=== PATIENT | male | born 1995 | race Caucasian/White ===

== ENCOUNTER 2018-09-05 10:35 | Emergency (ER) | payer SELFPAY ==
[2018-09-05 10:40] VITALS: BP 134/74
[2018-09-05] MEDS ORDERED: TETRACAINE HCL 0.5% OPH SOLN 4 ML OD ONE (10:48)
--- NOTE | 2018-09-05 10:48 | ER Document Report ---
ED General - General Chief Complaint: Eye Injury Stated Complaint: RIGHT EYE INJURY Time Seen by Provider: 09/05/18 10:43 Notes: Patient is a 23-year-old male that presents to the emergency department for chief complaint of right eye injury. Patient states that he was at work, when he shoebox fell and struck his right eye, this caused redness and pain so it he was told to come to the emergency department. He reports this occurred about 45 minutes ago, he has a throbbing ache in his eye, but does not describe it as pain. He reports he has had a tetanus shot in the last 5 years. He has some blurriness to his vision, but states he can see rather well. He does not wear contacts or glasses. Denies any other injuries, did not lose consciousness. Past Medical History: Denies chronic medical conditions Past Surgical History: Denies surgical history Social History: Denies current tobacco, alcohol or drug use Family History: Reviewed and noncontributory for presenting illness Allergies: Reviewed, see documented allergy list. REVIEW OF SYSTEMS: Unless otherwise stated in this report the patient's positive and negative responses for review of systems for constitutional, eyes, ENT, cardiovascular, respiratory, gastrointestinal, neurological, genitourinary, musculoskeletal, and integumentary systems and related systems to the presenting problem are either as stated in the HPI or were not pertinent or were negative for the symptoms and/or complaints related to the presenting medical problem. PHYSICAL EXAMINATION: Vital signs reviewed, nursing noted reviewed. GENERAL: Well-appearing, well-nourished and in no acute distress. HEAD: Atraumatic, normocephalic. EYES: Eyes appear normal, extraocular movements intact, sclera anicteric, right conjunctival injection, no preseptal edema, EOMI, PERRLA, no pain with extraocular eye movements, fluorescein dye exam using slit lamp, there is a linear horizontal corneal abrasion noted inferior to the right pupil. No Angie sign, no flare. ENT: nares patent, oropharynx clear without exudates. Moist mucous membranes. NECK: Normal range of motion, supple without lymphadenopathy LUNGS: Breath sounds clear to auscultation bilaterally and equal. No wheezes rales or rhonchi. HEART: Regular rate and rhythm without murmurs ABDOMEN: Soft, nontender, normoactive bowel sounds. No rebound, guarding, or rigidity. No masses appreciated. EXTREMITIES: Nontender, good range of motion, no pitting or edema. NEUROLOGICAL: No focal neurological deficits. Moves all extremities spontaneously Motor and sensory grossly intact on exam. PSYCH: Normal mood, normal affect. SKIN: Warm, Dry, normal turgor, no rashes or lesions noted on exposed skin TRAVEL OUTSIDE OF THE [place] IN LAST 30 DAYS: No - Related Data Allergies/Adverse Reactions: codeine [Codeine] Allergy (Verified 09/05/18 10:47) peanut Allergy (Verified 09/05/18 10:47) Past Medical History - Social History Smoking Status: Never Smoker Frequency of alcohol use: None Drug Abuse: None Family History: Reviewed & Not Pertinent Patient has suicidal ideation: No Patient has homicidal ideation: No Pulmonary Medical History: Reports: Hx Asthma Renal/ Medical History: Denies: Hx Peritoneal Dialysis Past Surgical History: Reports: Hx Tonsillectomy - Immunizations Immunizations up to date: Yes Hx Diphtheria, Pertussis, Tetanus Vaccination: No Physical Exam - Vital signs Vitals: Temp Pulse Resp BP Pulse Ox 98.7 F 80 16 134/74 H 98 09/05/18 10:39 09/05/18 10:39 09/05/18 10:39 09/05/18 10:39 09/05/18 10:39 Course - Re-evaluation Re-evalutation: Patient seen and examined vital signs reviewed. Patient was evaluated and treated as appropriate for the patient's presenting symptoms and complaint, with consideration of any critical or life threatening conditions that may be associated with their obtained history and exam as noted above. Patient was treated with tetracaine dye, given good relief of his throbbing sensation, under slit-lamp exam, the patient did have a superficial corneal abrasion inferior to the pupil of the right eye The patient was re-evaluated and was stable Evaluation was most consistent with corneal abrasion of the right eye, will treat with ciprofloxacin eyedrops, he is given a prescription, and follow-up with ophthalmology, patient was agreeable, is also given a work note. Plan of care was discussed with the patient at this point, after careful consideration I feel that that patient can be discharged from the emergency department, the patient was educated treatments and reasons to return to the emergency department based on their presumed diagnosis as noted above, they were advised to followup with a primary care physician in 2-3 days. Patient was agreeable to plan of care. *Note is created using voice recognition software and may contain spelling, syntax or grammatical errors. - Vital Signs Vital signs: Temp Pulse Resp BP Pulse Ox 98.7 F 80 16 134/74 H 98 09/05/18 10:39 09/05/18 10:39 09/05/18 10:39 09/05/18 10:39 09/05/18 10:39 Discharge - Discharge Clinical Impression: Corneal abrasion Qualifiers: Encounter type: initial encounter Laterality: right Qualified Code(s): S05.01XA - Injury of conjunctiva and corneal abrasion without foreign body, right eye, initial encounter Condition: Stable Disposition: HOME, SELF-CARE Instructions: Corneal Abrasion ([facility]) Additional Instructions: If you have worsening pain or vision loss do not hesitate to return to the emergency department, please use the antibiotic eyedrops, as directed, and follow-up with the white lead filterer. Prescriptions: Ciprofloxacin HCl 2.5 ml OD Q4H 5 Days #1 bottle Forms: Return to Work [facility] [NO [facility]AL MD] - Follow up as needed TIAN FALCON MD [ACTIVE STAFF] - Follow up tomorrow (call for appointment. )
== END 2018-09-05 11:03 | disposition home or self-care (01) ==
LOC: ER 10:35
DX: S05.01XA Injury of conjunctiva and corneal abrasion without foreign body, right eye, initial encounter (principal); W20.8XXA Other cause of strike by thrown, projected or falling object, initial encounter; Y99.0 Civilian activity done for income or pay; Z88.6 Allergy status to analgesic agent; Z91.010 Allergy to peanuts
CPT/HCPCS: 99283

== ENCOUNTER 2019-03-23 03:44 | Emergency (ER) | payer SELFPAY ==
[2019-03-23] MEDS ORDERED: LOPERAMIDE HCL 2 MG CAPSULE PO ONE (07:15)
[2019-03-23] MEDS ORDERED: ONDANSETRON 4 MG TAB.RAPDIS PO ONE (07:15)
--- NOTE | 2019-03-23 07:24 | ER Document Report ---
ED General - General Chief Complaint: Vomiting/Diarrhea Stated Complaint: VOMITING Time Seen by Provider: 03/23/19 07:15 Notes: Patient presents with vomiting diarrhea. Last night he got kind of a bellyache, and then woke up vomiting about 11 PM. He is vomited about 6 times since then but then began also having diarrhea. Diarrhea is watery and nonbloody. He denies abdominal pain constantly but has intermittent gurgling and cramping. No questionable food intake foreign travel antibiotics or see the history. No fever. TRAVEL OUTSIDE OF THE [place] IN LAST 30 DAYS: No - Related Data Allergies/Adverse Reactions: codeine [Codeine] Allergy (Verified 03/23/19 07:26) peanut Allergy (Verified 03/23/19 07:26) Past Medical History - General Information source: Patient - Social History Smoking Status: Never Smoker Family History: Reviewed & Not Pertinent Pulmonary Medical History: Reports: Hx Asthma Renal/ Medical History: Denies: Hx Peritoneal Dialysis Past Surgical History: Reports: Hx Tonsillectomy - Immunizations Immunizations up to date: Yes Hx Diphtheria, Pertussis, Tetanus Vaccination: No Review of Systems - Review of Systems Notes: REVIEW OF SYSTEMS GEN: Denies fever, chills, weight loss ENT: Denies sore throat, nasal discharge, ear pain EYES: Denies blurry vision, eye pain, discharge CV: Denies chest pain, palpitations, edema RESP: Denies cough, shortness of breath, wheezing GI: Abdominal pain vomiting diarrhea MSK: Denies joint pain/swelling, edema, SKIN: Denies rash, skin lesions LYMPH: Denies swollen glands/lymph nodes NEURO: Denies headache, focal weakness or numbness, dizziness PSYCH: Denies depression, suicidal or homicidal ideation PHYSICAL EXAMINATION General: No acute distress, well-nourished Head: Atraumatic, normocephalic ENT: Mouth normal, oropharynx moist, no exudates or tonsillar enlargement Eyes: Conjunctiva normal, pupils equal, lids normal Neck: No JVD, supple, no guarding CVS: Normal rate, regular rhythm, no murmurs Resp: No resp distress, equal and normal breath sounds bilaterally GI: Nondistended, soft, no tenderness to palpation, no rebound or guarding Ext: No deformities, no edema, normal range of motion in upper and lower ext Back: No CVA or midline TTP Skin: No rash, warm Lymphatic: No lymphadeopathy noted Neuro: Awake, alert. Face symmetric. GCS 15. Physical Exam - Vital signs Vitals: Temp Pulse Resp BP Pulse Ox 97.6 F 84 17 127/72 H 97 03/23/19 03:54 03/23/19 03:54 03/23/19 03:54 03/23/19 03:54 03/23/19 03:54 Course - Re-evaluation Re-evalutation: 03/23/19 07:22 Healthy young male with vomiting diarrhea no abdominal tenderness despite intermittent abdominal cramping, very likely acute gastroneuritis. Has not tried anything at home. Will do Zofran sublingual and p.o. Imodium to start and then attempt to orally hydrate. Doubt appendicitis or other acute abdominal emergency at this point. 03/23/19 13:35 Patient resting comfortably after medications and was tolerating p.o. with normal vital signs. He will be discharged home to follow-up with primary care. I have discussed with the patient there likely diagnosis, aftercare plan, follow-up plans and my usual and customary return precautions. They verbalized understanding of this. - Vital Signs Vital signs: Temp Pulse Resp BP Pulse Ox 97.5 F 83 18 97/58 L 100 03/23/19 08:50 03/23/19 08:50 03/23/19 08:50 03/23/19 08:50 03/23/19 08:50 Discharge - Discharge Clinical Impression: Nausea vomiting and diarrhea Condition: Good Disposition: HOME, SELF-CARE Instructions: Antinausea Medication ([facility]) Prescriptions: Ondansetron [Zofran Odt 4 mg Tablet] 1 - 2 tab PO Q4H PRN #15 tab.rapdis PRN Reason: For Nausea/Vomiting Forms: Return to Work
[2019-03-23 08:52] VITALS: BP 97/58
== END 2019-03-23 08:52 | disposition home or self-care (01) ==
LOC: ER 03:44
DX: R11.2 Nausea with vomiting, unspecified (principal); R19.7 Diarrhea, unspecified; R10.9 Unspecified abdominal pain; J45.909 Unspecified asthma, uncomplicated; Z88.5 Allergy status to narcotic agent; Z91.010 Allergy to peanuts
CPT/HCPCS: 99283; S0119

== ENCOUNTER 2020-05-08 16:54 | Emergency (ER) | payer BC, OTHER ==
[2020-05-08 17:07] VITALS: BP 117/63
[2020-05-08] MEDS ORDERED: ALBUTEROL SULFATE 0.083% NEB 2.5 MG/3 ML AMPUL NEB ONE (17:23)
[2020-05-08] MEDS ORDERED: METHYLPREDNISOLONE ACETATE INJ 40 MG/1 ML ML IM ONE (17:23)
[2020-05-08] MEDS ORDERED: DEXAMETHASONE SOD PHOS INJ 10 MG/1 ML VIAL IM ONE (17:23)
--- NOTE | 2020-05-08 17:36 | ER Document Report ---
HPI - HPI Patient complains to provider of: Asthma Time Seen by Provider: 05/08/20 17:20 Onset: This morning Pain Level: 3 Context: This 24-year-old male who had an asthma attack this morning he took his inhaler refill little bit better but he has had 3 attacks in the last 24 hours and just felt that he should be evaluated. Associated Symptoms: None. denies: Nonproductive cough, Fever, Nausea Exacerbated by: Denies Relieved by: Denies - CARDIOVASCULAR Cardiovascular: REPORTS: Chest pain - RESPIRATORY Respiratory: REPORTS: Trouble Breathing Past Medical History - General Information source: Patient - Social History Smoking Status: Never Smoker Frequency of alcohol use: Occasional Drug Abuse: None Family History: Reviewed & Not Pertinent Patient has homicidal ideation: No Pulmonary Medical History: Reports: Hx Asthma Renal/ Medical History: Denies: Hx Peritoneal Dialysis Past Surgical History: Reports: Hx Tonsillectomy - Immunizations Immunizations up to date: Yes Hx Diphtheria, Pertussis, Tetanus Vaccination: No Vertical Provider Document - CONSTITUTIONAL Agree With Documented VS: Yes - INFECTION CONTROL TRAVEL OUTSIDE OF THE [place] IN LAST 30 DAYS: No - HEENT HEENT: Atraumatic, Conjuctival Injection - NECK Neck: Normal Inspection - RESPIRATORY Respiratory: Breath Sounds Normal, No Respiratory Distress. negative: Rhonchi, Wheezing - CARDIOVASCULAR Cardiovascular: Regular Rate, Regular Rhythm - GI/ABDOMEN Gastrointestinal: Abdomen Soft, Abdomen Non-Tender Course - Re-evaluation Re-evalutation: 05/08/20 17:33 Patient No expiratory wheezes no rhonchi upon evaluation however he has had 3 asthma attacks in the last 24 hours which she was able to get on top of both his pro- air inhaler which she has plenty of at home. Here in the department he was saturating at 98% with 16 respirations we decided to provide him with some steroids and an antibiotic for his reactive airway disease - Vital Signs Vital signs: Temp Pulse Resp BP Pulse Ox 97.9 F 95 20 117/63 98 05/08/20 17:14 05/08/20 17:06 05/08/20 17:06 05/08/20 17:06 05/08/20 17:06 Discharge - Discharge Clinical Impression: Reactive airway disease Qualifiers: Asthma severity: moderate Asthma persistence: persistent Asthma complication type: with acute exacerbation Qualified Code(s): J45.41 - Moderate persistent asthma with (acute) exacerbation Condition: Good Disposition: HOME, SELF-CARE Instructions: Antibiotic Therapy ([facility]), Asthma ([facility]), Inhaled Bronchodilators ([facility]) Prescriptions: Amoxicillin/Potassium Clav [Augmentin 875-125 Tablet] 1 tab PO Q12 #20 tablet Prednisone [Deltasone 20 mg Tablet] 3 tab PO DAILY 5 Days tablet Albuterol Sulfate [Proair HFA Inhalation Aerosol 8.5 gm MDI] 2 puff IH Q4H PRN #1 mdi PRN Reason: Albuterol Sulfate [Proair HFA Inhalation Aerosol 8.5 gm MDI] 2 puff IH Q4H PRN #1 mdi PRN Reason:
[2020-05-08] MEDS ORDERED: LIDOCAINE 1% INJ (10 MG/ML) 10 ML MDV INJ ONE (17:39)
== END 2020-05-08 18:22 | disposition home or self-care (01) ==
LOC: ER 16:54
DX: J45.41 Moderate persistent asthma with (acute) exacerbation (principal); R07.9 Chest pain, unspecified; R06.02 Shortness of breath; Z79.51 Long term (current) use of inhaled steroids
CPT/HCPCS: 94640; 96372; 99284; J1030; J1100

== ENCOUNTER 2020-05-10 15:33 | Emergency (ER) | payer BC ==
--- NOTE | 2020-05-10 17:53 | ER Document Report ---
HPI - HPI Time Seen by Provider: 05/10/20 17:50 Context: Patient is a 24-year-old male who presents to the emergency department with a chief complaint of a possible medication reaction. Patient states that he was prescribed prednisone, Augmentin, and was told to continue his breathing treatme nts at home for an asthma exacerbation he had 2 days ago. Patient states that he feels nauseous and has had an upset stomach. - ROS Systems Reviewed and Negative: No All other systems reviewed and negative - CONSTITUTIONAL Constitutional: DENIES: Fever, Chills - CARDIOVASCULAR Cardiovascular: DENIES: Chest pain - RESPIRATORY Respiratory: DENIES: Trouble Breathing, Coughing - GASTROINTESTINAL Gastrointestinal: REPORTS: Abdominal Pain - upset stomach, Nausea - MUSCULOSKELETAL Musculoskeletal: DENIES: Extremity pain - DERM Skin Color: Normal Skin Problems: None Past Medical History - Social History Smoking Status: Never Smoker Family History: Reviewed & Not Pertinent Pulmonary Medical History: Reports: Hx Asthma Renal/ Medical History: Denies: Hx Peritoneal Dialysis Past Surgical History: Reports: Hx Tonsillectomy - Immunizations Immunizations up to date: Yes Hx Diphtheria, Pertussis, Tetanus Vaccination: No Vertical Provider Document - CONSTITUTIONAL Agree With Documented VS: Yes Exam Limitations: No Limitations General Appearance: No Apparent Distress - INFECTION CONTROL TRAVEL OUTSIDE OF THE [place] IN LAST 30 DAYS: No - HEENT HEENT: Atraumatic, Normocephalic, PERRLA - NECK Neck: Normal Inspection - RESPIRATORY Respiratory: Breath Sounds Normal, No Respiratory Distress - CARDIOVASCULAR Cardiovascular: Regular Rate, Regular Rhythm Pulses: Normal: Radial - GI/ABDOMEN Gastrointestinal: Abdomen Soft, Abdomen Non-Tender - MUSCULOSKELETAL/EXTREMETIES Musculoskeletal/Extremeties: FROM - NEURO Level of Consciousness: Awake, Alert, Appropriate Motor/Sensory: No Motor Deficit, No Sensory Deficit - DERM Integumentary: Warm, Dry, No Rash Course - Re-evaluation Re-evalutation: 05/10/20 17:54 Patient's physical exam is unremarkable. We will start him on Pepcid and Zofran to help with his symptoms. I suspect the prednisone is causing him to have gastric upset. I Have a low suspicion for any life-threatening etiology at this time. Patient is nontoxic in appearance. Follow-up precautions were given. Verbal discharge instructions were given to the patient. They verbalized understanding. They are stable for discharge. - Vital Signs Vital signs: Temp Pulse Resp BP Pulse Ox 98.6 F 99 16 111/87 H 97 05/10/20 15:59 05/10/20 15:59 05/10/20 15:59 05/10/20 15:59 05/10/20 15:59 Discharge - Discharge Clinical Impression: Upset stomach, Nausea Condition: Stable Disposition: HOME, SELF-CARE Additional Instructions: You were seen today in the emergency department for an upset stomach after receiving medications from the emergency department. It is common for you to have an upset stomach with his medications. Start Pepcid as directed. You can take Zofran as needed for nausea or vomiting. Prescriptions: Famotidine [Pepcid 20 mg Tablet] 20 mg PO BID #12 tablet Ondansetron [Zofran Odt 4 mg Tablet] 1 - 2 tab PO Q4H PRN #30 tab.rapdis PRN Reason: For Nausea/Vomiting Forms: Return to Work
[2020-05-10 18:38] VITALS: BP 136/79
== END 2020-05-10 18:35 | disposition home or self-care (01) ==
LOC: ER 15:33
DX: R11.0 Nausea (principal); R10.9 Unspecified abdominal pain
CPT/HCPCS: 99283

== ENCOUNTER 2020-07-09 04:24 | Emergency (ER) | payer BC ==
[2020-07-09 05:46] LABS: ABSOLUTE BASOPHILS # (AUTO) 0.1 10^3/uL (0.0-0.2); ABSOLUTE EOSINOPHILS # (AUTO) 0.3 10^3/uL (0.0-0.6); ABSOLUTE MONOCYTES (AUTO) 0.5 10^3/uL (0.1-1.4); ABSOLUTE NEUT (AUTO) 4.5 10^3/uL (1.7-8.2); BASOPHILS % (AUTO) 1.4 % (0-2); EOSINOPHILS % (AUTO) 4.1 % (0-6); HEMATOCRIT 42.2 % (37.9-51.0); HEMOGLOBIN 15.2 g/dL (13.5-17.0); MEAN CORPUSCULAR HEMOGLOBIN 30.7 pg (27.0-33.4); MEAN CORPUSCULAR VOLUME 85 fl (80-97); MONOCYTES % (AUTO) 6.6 % (3-13); PLATELET COUNT 196 10^3/uL (150-450); RED BLOOD COUNT 4.95 10^6/uL (4.35-5.55); SEGMENTED NEUTROPHILS % (AUTO) 60.9 % (42-78); TOTAL CELLS COUNTED % (AUTO) 100 %; WHITE BLOOD COUNT 7.4 10^3/uL (4.0-10.5)
[2020-07-09 06:06] LABS: ALBUMIN 4.6 g/dL (3.5-5.0); ALKALINE PHOSPHATASE 107 U/L (38-126); ANION GAP 11 (5-19); ASPARTATE AMINO TRANSFERASE 35 U/L (17-59); BILIRUBIN,DIRECT 0.3 mg/dL (0.0-0.4); BILIRUBIN,TOTAL 0.6 mg/dL (0.2-1.3); BLOOD UREA NITROGEN 15 mg/dL (7-20); CALCIUM 9.7 mg/dL (8.4-10.2); CARBON DIOXIDE 27 mmol/L (22-30); CHLORIDE 105 mmol/L (98-107); GLUCOSE 122 mg/dL (75-110); POTASSIUM 4.2 mmol/L (3.6-5.0); TOTAL PROTEIN 7.6 g/dL (6.3-8.2)
[2020-07-09 06:08] LABS: APPEARANCE,URINE CLEAR; BILIRUBIN,URINE NEGATIVE (NEGATIVE); COLOR,URINE YELLOW; GLUCOSE, URINE NEGATIVE (NEGATIVE); KETONES,URINE NEGATIVE (NEGATIVE); LEUKOCYTE ESTERASE,URINE NEGATIVE (NEGATIVE); NITRITE,URINE NEGATIVE (NEGATIVE); PROTEIN,URINE NEGATIVE (NEGATIVE); URINE SPECIFIC GRAVITY 1.026
--- NOTE | 2020-07-09 06:14 | RADIOLOGY REPORT (SQ) ---
CLINICAL HISTORY: SOB COMPARISON: None. TECHNIQUE: XR CHEST 1 VIEW 07/09/2020 5:09 AM CDT FINDINGS: Cardiac silhouette is normal in size. Lungs are clear without consolidation, atelectasis, mass or edema. There is no pleural effusion. There is no pneumothorax. There are no acute osseous findings. IMPRESSION: Clear lungs.
--- NOTE | 2020-07-09 06:16 | ER Document Report ---
ED General - General Chief Complaint: Chest Pain Stated Complaint: CHEST PAIN Time Seen by Provider: 07/09/20 06:10 Notes: 25-year-old male with asthma presents with asthma attack consisting of chest pressure and shortness of breath with wheezing which started several hours ago. He ran out of his inhaler so came to the ED. Since he is been waiting in the waiting room for over 5 hours his symptoms have resolved. He denies increasing cough body aches fevers or known covert exposure. He was on Advair and would like to go back on it but does not have primary care TRAVEL OUTSIDE OF THE [place] IN LAST 30 DAYS: No - Related Data Allergies/Adverse Reactions: codeine [Codeine] Allergy (Verified 07/09/20 05:04) peanut Allergy (Verified 07/09/20 05:04) Home Medications: ALBUTEROL Past Medical History - General Information source: Patient - Social History Smoking Status: Former Smoker Frequency of alcohol use: Occasional Drug Abuse: None Family History: Reviewed & Not Pertinent Patient has homicidal ideation: No Pulmonary Medical History: Reports: Hx Asthma Past Surgical History: Reports: Hx Tonsillectomy - Immunizations Immunizations up to date: Yes Hx Diphtheria, Pertussis, Tetanus Vaccination: No Review of Systems - Review of Systems Notes: REVIEW OF SYSTEMS GEN: Denies fever, chills, weight loss ENT: Denies sore throat, nasal discharge, ear pain EYES: Denies blurry vision, eye pain, discharge CV: Chest tightness RESP: As of breath, wheezing GI: Denies abdominal pain, nausea, vomiting, diarrhea MSK: Denies joint pain/swelling, edema, SKIN: Denies rash, skin lesions LYMPH: Denies swollen glands/lymph nodes NEURO: Denies headache, focal weakness or numbness, dizziness PSYCH: Denies depression, suicidal or homicidal ideation PHYSICAL EXAMINATION General: No acute distress, well-nourished Head: Atraumatic, normocephalic ENT: Mouth normal, oropharynx moist, no exudates or tonsillar enlargement Eyes: Conjunctiva normal, pupils equal, lids normal Neck: No JVD, supple, no guarding CVS: Normal rate, regular rhythm, no murmurs Resp: No resp distress, equal and normal breath sounds bilaterally GI: Nondistended, soft, no tenderness to palpation, no rebound or guarding Ext: No deformities, no edema, normal range of motion in upper and lower ext Back: No CVA or midline TTP Skin: No rash, warm Lymphatic: No lymphadeopathy noted Neuro: Awake, alert. Face symmetric. GCS 15. Physical Exam - Vital signs Vitals: Temp Pulse Resp BP Pulse Ox 97.7 F 86 19 145/83 H 96 07/09/20 04:35 07/09/20 04:35 07/09/20 04:35 07/09/20 04:35 07/09/20 04:35 Course - Re-evaluation Re-evalutation: 07/09/20 07:15 Asthma attack resolved normal vital signs clear chest Advised outpatient COVID testing, will prescribed albuterol and inhaler Work-up already done, negative. I have discussed with the patient there likely diagnosis, aftercare plan, follow-up plans and my usual and customary return precautions. They verbalized understanding of this. - Vital Signs Vital signs: Temp Pulse Resp BP Pulse Ox 98.7 F 80 16 140/70 H 97 07/09/20 06:20 07/09/20 06:20 07/09/20 06:20 07/09/20 06:20 07/09/20 06:20 - Laboratory Result Diagrams: 07/09/20 05:32 07/09/20 05:32 Laboratory results interpreted by me: 07/09/20 07/09/20 05:32 05:32 Glucose 122 H Urine Urobilinogen 2.0 H - Diagnostic Test Radiology reviewed: Image reviewed, Reports reviewed - EKG Interpretation by [facility] EKG shows normal: Sinus rhythm Rate: Normal Rhythm: NSR When compared to previous EKG there are: Previous EKG unavailable Discharge - Discharge Clinical Impression: Asthma exacerbation Qualifiers: Asthma severity: mild Asthma persistence: unspecified Qualified Code(s): J4 5.901 - Unspecified asthma with (acute) exacerbation Condition: Good Disposition: HOME, SELF-CARE Instructions: Asthma ([facility]), Chest Pain of Unclear Cause ([facility]) Prescriptions: Albuterol Sulfate [Ventolin Hfa 8 gm Mdi] 2 puff IH Q4HP PRN #1 inhaler PRN Reason: Fluticasone/Salmeterol [Advair 100-50 Diskus 14 Dose/Diskus] 1 inh IH Q12H #1 inhaler Forms: Return to Work
[2020-07-09 06:24] VITALS: BP 140/70
--- NOTE | 2020-07-09 17:07 | EKG REPORT ---
SEVERITY:- NORMAL ECG - SINUS RHYTHM : Confirmed by: Abbi Chiu MD 09-Jul-2020 17:06:36
== END 2020-07-09 06:20 | disposition home or self-care (01) ==
LOC: ER 04:24
DX: J45.901 Unspecified asthma with (acute) exacerbation (principal); R07.89 Other chest pain; Z87.891 Personal history of nicotine dependence
CPT/HCPCS: 36415; 71045; 80053; 81001; 84484; 85025; 93005; 93010; 99285

== ENCOUNTER 2020-10-26 20:37 | Emergency (ER) | payer SELFPAY ==
[2020-10-26] MEDS ORDERED: IPRATROPIUM/ALBUTEROL 0.5-2.5 MG/3 ML AMPUL NEB ONE (22:04)
--- NOTE | 2020-10-26 22:10 | ER Document Report ---
ED Respiratory Problem - General Chief Complaint: Shortness Of Breath Stated Complaint: SHORTNESS OF BREATH/ASTHMA EXACERBATION Time Seen by Provider: 10/26/20 21:58 Primary Care Provider: [facility] [Provider Group] - Follow up as needed TRAVEL OUTSIDE OF THE [place] IN LAST 30 DAYS: No - HPI Notes: Patient is a 25-year-old male with history of asthma who presents for asthma exacerbation. 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 Patient states the dust exacerbated his asthma and he began to have a hard time breathing. Patient states that occurred about an hour prior to arrival. He states he uses inhaler which provided significant relief. He states he is feeling much better and is no longer short of breath. However "his work requires that he come in and be checked. He denies chest pain, cough, and fever. - Related Data Allergies/Adverse Reactions: codeine [Codeine] Allergy (Verified 07/09/20 05:04) peanut Allergy (Verified 07/09/20 05:04) Home Medications: ventolin Past Medical History - General Information source: Patient - Social History Smoking Status: Never Smoker Chew tobacco use (# tins/day): No Frequency of alcohol use: Occasional Drug Abuse: None Family History: Reviewed & Not Pertinent Pulmonary Medical History: Reports: Hx Asthma Past Surgical History: Reports: Hx Tonsillectomy - Immunizations Immunizations up to date: Yes Hx Diphtheria, Pertussis, Tetanus Vaccination: No Review of Systems - Review of Systems Constitutional: No symptoms reported EENT: No symptoms reported Cardiovascular: No symptoms reported Respiratory: See HPI Gastrointestinal: No symptoms reported Genitourinary: No symptoms reported Male Genitourinary: No symptoms reported Musculoskeletal: No symptoms reported Skin: No symptoms reported Hematologic/Lymphatic: No symptoms reported Neurological/Psychological: No symptoms reported Physical Exam - Vital signs Vitals: Temp Pulse Resp BP Pulse Ox 98.0 F 92 24 H 135/75 H 98 10/26/20 20:50 10/26/20 20:50 10/26/20 20:50 10/26/20 20:50 10/26/20 20:50 - Notes Notes: PHYSICAL EXAMINATION: VITALS: Vitals reviewed and within normal limits. GENERAL: Well-appearing, well-nourished and in no acute distress. HEAD: Atraumatic, normocephalic. EYES: Pupils equal, round, and reactive to light, extraocular movements intact, sclera anicteric, conjunctiva are normal. ENT: Nares patent. Moist mucous membranes. Oropharynx clear without exudates. NECK: Normal range of motion, supple without lymphadenopathy. LUNGS: Non-labored breaths. Mild wheeze heard over right middle lobe, lungs clear to auscultation in all other lobes. No rales, or rhonchi. HEART: Regular, rate, and rhythm without murmurs. ABDOMEN: Soft, nontender, normoactive bowel sounds. No guarding, no rebound. No masses appreciated. EXTREMITIES: Normal range of motion, no pitting or edema. No cyanosis. NEUROLOGICAL: No focal neurological deficits. Moves all extremities spontaneously and on command. PSYCH: Normal mood, normal affect. SKIN: Warm, Dry, normal turgor, no rashes or lesions noted. Course - Re-evaluation Re-evalutation: Patient presents with a mild exacerbation of their baseline asthma. Mild wheezing at time of presentation but vitals do not show significant hypoxemia or tachypnea. No retractions. Patient did clinically improve after receiving nebulizers here in the emergency department. Chest x-ray without evidence of an acute pneumonia. Patient able to ambulate without any respiratory distress. Based on patient's overall reassuring assessment, I believe they are stable for outpatient management. I do not suspect an acute alternative pathology at this time based on history and exam including acute pulmonary embolus, ACS, pneumothorax, or aortic dissection. At this time will discharge with return precautions and follow-up recommendations. Verbal discharge instructions given a the bedside and opportunity for questions given. Medication warnings reviewed. Patient is in agreement with this plan and has verbalized understanding of return precautions and the need for primary care follow-up in the next 24-72 hours. - Vital Signs Vital signs: Temp Pulse Resp BP Pulse Ox 98.3 F 87 18 129/89 H 99 10/26/20 23:56 10/26/20 23:56 10/26/20 23:56 10/26/20 23:56 10/26/20 23:56 - Laboratory Results Critical Laboratory Results Reviewed: No Critical Results - Radiology Results Critical Radiology Results Reviewed: No Critical Results Discharge - Discharge Clinical Impression: Asthma exacerbation Qualifiers: Asthma severity: mild Asthma persistence: intermittent Qualified Code(s): J45.21 - Mild intermittent asthma with (acute) exacerbation Condition: Stable Disposition: HOME, SELF-CARE Additional Instructions: You were seen for an asthma exacerbation. Your symptoms improved with treatment here in the emergency department. However, it is very important that you return to the emergency department immediately if you began to have worsening difficulty breathing that does not respond to your normal home nebulizers. You are also being sent home on a five-day course of steroids that you should start taking tomorrow. Please also follow closely with your primary care physician. you should also return to emergency department if you develop fever greater than 101, persistent cough, persistent vomiting, pass out, or any other symptoms that are concerning to you. Forms: Return to Work Referrals: [facility] [Provider Group] - Follow up as needed
--- NOTE | 2020-10-26 23:05 | RADIOLOGY REPORT (SQ) ---
EXAM DESCRIPTION: XR CHEST 1 VIEW COMPLETED DATE/TME: 10/26/2020 22:42 CLINICAL HISTORY: 25 years, Male, focal wheeze COMPARISON: None. NUMBER OF VIEWS: 1 TECHNIQUE: Portable chest LIMITATIONS: None. FINDINGS: Heart size normal. Lungs clear. No pneumothorax IMPRESSION: Negative chest copyright 2011 [employer]- All Rights Reserved
[2020-10-26 23:57] VITALS: BP 129/89
== END 2020-10-26 23:56 | disposition home or self-care (01) ==
LOC: ER 20:37
DX: J45.21 Mild intermittent asthma with (acute) exacerbation (principal); Z79.899 Other long term (current) drug therapy; Z88.6 Allergy status to analgesic agent; Z88.5 Allergy status to narcotic agent; Z91.010 Allergy to peanuts
CPT/HCPCS: 71045; 94640; 99283